=== PATIENT | female | born 1995 | race Caucasian/White ===

== ENCOUNTER 2018-12-07 14:32 | Emergency (ER) | payer OTHER ==
[2018-12-07] MEDS ORDERED: KETOROLAC 60 MG/2 ML VIAL IM STA (15:10)
[2018-12-07] MEDS ORDERED: CYCLOBENZAPRINE 10 MG TABLET PO STA (15:10)
[2018-12-07 15:11] VITALS: BP 144/88
--- NOTE | 2018-12-07 15:26 | ED Physician Documentation ---
PD HPI BACK PAIN - Stated complaint Stated Complaint: BACK PAIN - Chief complaint Chief Complaint: Back Pain - History obtained from History obtained from: Patient, Family - History of Present Illness Timing - onset: How many hours ago (4) Timing - duration: Hours (4) Timing - details: Abrupt onset Pain level max: 6 Pain level now: 4 Location: Lower Quality: Pain Associated symptoms: No: Fever, Weakness, Numbness, Incontinent of urine, Unable to urinate, Hematuria, Incontinent of stool Improves with: Rest Worsened by: Movement Contributing factors: Other (hit in the back by a door closing today) Similar symptoms before: Has not had sx before Recently seen: Not recently seen - Additional information Additional information: Occurred at work. Has not taken anything for the pain Review of Systems Constitutional: denies: Fever GI: denies: Nausea, Vomiting : denies: Incontinent, Now EGA Skin: denies: Rash Musculoskeletal: denies: Neck pain Neurologic: denies: Focal weakness, Numbness PD PAST MEDICAL HISTORY - Past Medical History Past Medical History: No - Past Surgical History Past Surgical History: Yes Ortho: Other - Present Medications Home Medications: Ambulatory Orders Medication Instructions Recorded Confirmed Cyclobenzaprine [Flexeril] 10 mg PO TID PRN #20 tablet 12/07/18 Desogestrel-Ethinyl Estradiol 1 each PO DAILY 12/07/18 12/07/18 [Enskyce 28 Tablet] Meloxicam [Mobic] 15 mg PO DAILY PRN #20 tablet 12/07/18 - Allergies Allergies/Adverse Reactions: Allergies Allergy/AdvReac Type Severity Reaction Status Date / Time No Known Drug Allergies Allergy Verified 12/07/18 14:37 - Social History Does the pt smoke?: No Smoking Status: Never smoker Does the pt drink ETOH?: No Does the pt have substance abuse?: No - Immunizations Immunizations are current?: Yes - POLST Patient has POLST: No PD ED PE NORMAL - Vitals Vital signs reviewed: Yes - General General: Alert and oriented X 3, No acute distress - HEENT HEENT: Moist mucous membranes - Abdomen Abdomen: Soft, Non tender, Non distended - Back Back: No spinal TTP (No midline tenderness to palpation or percussion. No step- off or deformity. Does have paraspinal tenderness but no spasm.) - Derm Derm: Warm and dry - Extremities Extremities: Other (Normal bilateral lower extremity patellar and ankle jerk reflexes. Normal great toe extension bilaterally. no saddle anesthesia) - Neuro Neuro: Alert and oriented X 3, No motor deficit, No sensory deficit - Psych Psych: Normal mood, Normal affect Results - Vitals Vitals: Vital Signs - 24 hr 12/07/18 14:36 Temperature 36.5 C Heart Rate 97 Respiratory 20 Rate Blood Pressure 144/88 H O2 Saturation 99 Oxygen O2 Source Room air PD MEDICAL DECISION MAKING - ED course Complexity details: considered differential, d/w patient ED course: 23-year-old female with what appears to be a back contusion from a metal bar on a door that closed on her. The door was propped open and hit her at a low rate of speed. She is ambulating without difficulty. No evidence of fracture, cauda equina, epidural abscess. Will trial her on pain medication for home and follow-up with her doctor for further care. Patient counseled regarding signs and symptoms for which I believe and urgent re-evaluation would be necessary. Patient with good understanding of and agreement to plan and is comfortable going home at this time This document was made in part using voice recognition software. While efforts are made to proofread this document, sound alike and grammatical errors may occur. Departure - Departure Disposition: 01 Home, Self Care Clinical Impression: Back pain Qualifiers: Back pain location: low back pain Chronicity: acute Back pain laterality: bilateral Sciatica presence: without sciatica Qualified Code(s): M54.5 - Low back pain Contusion, back Qualifiers: Encounter type: initial encounter Laterality: unspecified laterality Qualified Code(s): S20.229A - Contusion of unspecified back wall of thorax, initial encounter Condition: Good Instructions: ED Contusion Back Follow-Up: your,doctor in 1 week [Other] Prescriptions: Cyclobenzaprine [Flexeril] 10 mg PO TID PRN #20 tablet PRN Reason: Spasms Meloxicam [Mobic] 15 mg PO DAILY PRN #20 tablet PRN Reason: pain Comments: Follow up with your doctor for further care. Return if you worsen. This should improve over the next few days. Do not drive or operate heavy machinery while taking the flexeril. Forms: Activity restrictions Discharge Date/Time: 12/07/18 15:25
== END 2018-12-07 15:25 | disposition home or self-care (01) ==
LOC: ED 14:32
DX: M54.5 Low back pain (principal); S20.229A Contusion of unspecified back wall of thorax, initial encounter; W22.8XXA Striking against or struck by other objects, initial encounter; Y99.0 Civilian activity done for income or pay
CPT/HCPCS: 1040M; 96372; 99283; A9270